=== PATIENT | male | born 1940 | race Caucasian/White ===

== ENCOUNTER 2021-11-24 11:22 | Outpatient (CLI) | payer MEDICARE | END 2021-11-24 11:23 | disposition home or self-care (01) | LOC: CSHCT 11:22 | PROVIDERS: ATTEND Family Medicine | DX: R05.1 Acute cough (principal); R07.89 Other chest pain; T17.8 Foreign body in other parts of respiratory tract; J98.11 Atelectasis | CPT/HCPCS: 71250 ==